=== PATIENT | male | born 1950 | race Caucasian/White ===

== ENCOUNTER 2023-08-03 17:28 | Emergency (ER) | payer MEDICARE ==
[2023-08-03] MEDS ORDERED: Rabies Immune Globulin/PF (HyperRAB) 300 UNIT/ML 1 ML SDV IM ONE (18:07)
[2023-08-03] MEDS ORDERED: Rabies Vaccine (Avian) 2.5 Unit Inj Kit IM ONE (18:09)
[2023-08-03] MEDS ORDERED: Rabies Immune Globulin/PF (HyperRAB) 300 UNIT/ML 5 ML SDV IM ONE (20:00)
== END 2023-08-03 21:39 | disposition home or self-care (01) ==
LOC: JP.ED 17:28
DX: S71.152A Open bite, left thigh, initial encounter (principal); Z23 Encounter for immunization; W54.0XXA Bitten by dog, initial encounter
CPT/HCPCS: 90375; 90471; 90675; 96372; 99282; 99283-25